=== PATIENT | female | born 1985 | race Caucasian/White ===

== ENCOUNTER 2019-04-06 22:28 | Emergency (ER) | payer SELFPAY ==
[~2019-04-06] VITALS: Ht 172.7 cm; Wt 124.3 kg
[~2019-04-06 22:28] MED LIST: HYDR1TAB3 PO; LANS30CA PO; MULT-608 PO; PRM25T PO
[2019-04-06 22:53] LABS: BILIRUBIN,URINE NEGATIVE (NEGATIVE); CLARITY,URINE CLEAR; COLOR,URINE YELLOW; GLUCOSE, URINE (UA) NEGATIVE (NEGATIVE); KETONES,URINE 3+ (NEGATIVE); LEUKOCYTE ESTERASE ,URINE 2+ (NEGATIVE); NITRITE,URINE NEGATIVE (NEGATIVE); PH,URINE 5 (5-9); PROTEIN,URINE 2+ (NEGATIVE); UROBILINOGEN,URINE NORMAL (NORMAL)
--- NOTE | 2019-04-06 23:00 | ED Cough/URI ---
General Chief Complaint: Respiratory Problems Stated Complaint: COUGHING UP BLOOD Nursing Triage Note: Pt amb to room #6 w/o difficulty. a&ox4. c/o cough, congestion, and blood tinged sputum. Reports to have been seen @ [facility] on 03/29/19 where she was given IM rocephin injection. Reports symptoms persisted and began to cough up blood tinged sputum this evening. Denies recenet fever within past 48hrs. Reports "burning chest" and headache d/t congestion. Sepsis Screen: No Definite Risk Source: patient History of Present Illness Date Seen by Provider: Apr 06, 2019 Time Seen by Provider: 22:39 Initial Comments PT ARRIVES VIA POV STATES SHE HAS HAD COUGH AND CONGESTION X 1 WEEK HAD SUBJECTIVE FEVER AND CHILLS LAST WEEK BUT NONE SINCE NO CHEST PAIN OR SHORTNESS OF BREATH, BUT CHEST "PERKINS" OCCASIONALLY WITH COUGHING TONIGHT AT WORK, SHE COUGHED UP BLOOD TINGED SPUTUM X 1, SO CAME HERE C/O HEADACHE DUE TO NASAL CONGESTION/SINUS PRESSURE PT WAS SEEN BY DR. ESPINOZA LAST WEEK FOR ENDOMETRIAL BIOPSY, AND MENTIONED THESE RESPIRATORY SYMPTOMS AT THE TIME. WAS GIVEN A SHOT OF ROCEPHIN, BUT NO RX'S NO HX OF BRONCHITIS/PNEUMONIA OR RESPIRATORY PROBLEMS, OTHER THAT FREQUENT SINUS PROBLEMS PT SMOKES 2 PPD PCP: DR. ESPINOZA AT [facility] Allergies and Home Medications Allergies Coded Allergies: No Known Drug Allergies (Unverified , 01/21/15) Home Medications Azithromycin 500 Mg Tablet, 500 MG PO DAILY FOR INFECTION Prescribed by: HOLLEY VILLASENOR on 04/06/19 7951 Cefdinir 300 Mg Capsule, 300 MG PO BID Prescribed by: HOLLEY VILLASENOR on 04/06/19 4488 Patient Home Medication List Home Medication List Reviewed: Yes Review of Systems Review of Systems Constitutional: see HPI EENTM: see HPI, nose congestion Respiratory: see HPI, cough, hemoptysis, phlegm; No short of breath, No wheezing Cardiovascular: see HPI Gastrointestinal: no symptoms reported Genitourinary: see HPI (CHRONIC IRREGULAR PERIODS--HAD VAGINAL ULTRASOUND A FEW WEEKS AGO, AND ENDOMETRIAL BIOPSY LAST WEEK) LMP: March 17, 2019 (NO CONTROL) Musculoskeletal: no symptoms reported Skin: no symptoms reported Psychiatric/Neurological: No Symptoms Reported Hematologic/Lymphatic: No Symptoms Reported Immunological/Allergic: no symptoms reported Past Lbtmbco-Yttmxg-Sabyll Hx Patient Social History Alcohol Use: Denies Use Recreational Drug Use: No Smoking Status: Current Everyday Smoker (2 PPD) Type Used: Cigarettes (2 PPD) 2nd Hand Smoke Exposure: Yes Recent Foreign Travel: No Contact w/Someone Who Travel: No Recent Infectious Disease Expo: No Recent Hopitalizations: Yes (hositalized for allergic reaction) Immunizations Up To Date Date of Influenza Vaccine: Sep 24, 2014 Past Medical History Surgeries: Yes (BMT'S; RIGHT CARPAL TUNNEL; RIGHT GANGLION CYST X 2; LEFT TEMPORAL ARTERY BIOPSY; ENDOMETRIAL BIOPSY 03/2019) Gallbladder, Orthopedic, Renal, Tonsillectomy Respiratory: No Cardiac: No Palpitations Neurological: Yes Headaches /Migraines : No Female Reproductive Disorders: Menstrual Problems (IRREGULAR PERIODS) Sexually Transmitted Disease: No Genitourinary: Yes Kidney Stones, UTI-Chronic Gastrointestinal: Yes Irritable Bowel Musculoskeletal: Yes (GANGLION CYSTS, CARPAL TUNNEL, VITAMIN D DEFICIENCY) Endocrine: Yes (VITAMIN D DEFICIENCY; OBESITY) Diabetes, Non-Insulin dep Cancer: No Psychosocial: Yes Anxiety Integumentary: No Blood Disorders: No Physical Exam Vital Signs - First Documented 04/06/19 22:30 Temp 96.9 Pulse 82 Resp 19 B/P (MAP) 118/63 (81) Pulse Ox 95 O2 Delivery Room Air Capillary Refill : Less Than 3 Seconds Height: 5'8.00" Weight: 274lbs. oz. 124.386827gq; BMI Method:Stated General Appearance: no apparent distress, obese HEENT: PERRL/EOMI, other (NASAL CONGESTION; FRONTAL SINUS TENDERNESS) Neck: non-tender, full range of motion, supple, normal inspection Respiratory: normal breath sounds, no respiratory distress, no accessory muscle use Cardiovascular: regular rate, rhythm, no murmur Gastrointestinal: non tender, soft Extremities: normal inspection, no pedal edema Neurologic/Psychiatric: records officer II-XII nml as tested, no motor/sensory deficits, alert, normal mood/affect, oriented x 3 Skin: normal color, warm/dry Focused Exam Lactate Level 04/06/19 23:20: Lactic Acid Level 0.64 Lactic Acid Level Laboratory Tests Test 04/06/19 23:20 Lactic Acid Level 0.64 MMOL/L (0.50-2.00) Progress/Results/Core Measures Suspected Sepsis Recent Fever Within 48 Hours: No Infection Criteria Present: Suspected New Infection New/Unexplained Altered Menta: No Sepsis Screen: No Definite Risk SIRS Temperature:96.9 Pulse: 82 Respiratory Rate: 19 Laboratory Tests 04/06/19 23:20: White Blood Count 14.3H Blood Pressure 118 /63 Mean: 81 04/06/19 23:20: Lactic Acid Level 0.64 Laboratory Tests 04/06/19 23:20: Creatinine 0.67, INR Comment 1.0, Platelet Count 490H, Total Bilirubin 0.2 Results/Orders Lab Results Laboratory Tests Test 04/06/19 22:45 04/06/19 23:20 Range/Units Urine Color YELLOW Urine Clarity CLEAR Urine pH 5 5-9 Urine Specific Ponce 1.025 H 1.016-1.022 Urine Protein 2+ H NEGATIVE Urine Glucose (UA) NEGATIVE NEGATIVE Urine Ketones 3+ H NEGATIVE Urine Nitrite NEGATIVE NEGATIVE Urine Bilirubin NEGATIVE NEGATIVE Urine Urobilinogen NORMAL NORMAL MG/DL Urine Leukocyte Esterase 2+ H NEGATIVE Urine RBC (Auto) 3+ H NEGATIVE Urine RBC 10-25 H /HPF Urine WBC 10-25 H /HPF Urine Squamous Epithelial Cells 2-5 /HPF Urine Crystals NONE /LPF Urine Bacteria FEW H /HPF Urine Casts NONE /LPF Urine Mucus LARGE H /LPF Urine Culture Indicated YES White Blood Count 14.3 H 4.3-11.0 10^3/uL Red Blood Count 5.28 4.35-5.85 10^6/uL Hemoglobin 12.4 11.5-16.0 G/DL Hematocrit 40 35-52 % Mean Corpuscular Volume 76 L 80-99 FL Mean Corpuscular Hemoglobin 24 L 25-34 PG Mean Corpuscular Hemoglobin Concent 31 L 32-36 G/DL Red Cell Distribution Width 15.9 H 10.0-14.5 % Platelet Count 490 H 130-400 10^3/uL Mean Platelet Volume 9.7 7.4-10.4 FL Neutrophils (%) (Auto) 66 42-75 % Lymphocytes (%) (Auto) 25 12-44 % Monocytes (%) (Auto) 7 0-12 % Eosinophils (%) (Auto) 1 0-10 % Basophils (%) (Auto) 0 0-10 % Neutrophils # (Auto) 9.5 H 1.8-7.8 X 10^3 Lymphocytes # (Auto) 3.6 1.0-4.0 X 10^3 Monocytes # (Auto) 0.9 0.0-1.0 X 10^3 Eosinophils # (Auto) 0.2 0.0-0.3 10^3/uL Basophils # (Auto) 0.1 0.0-0.1 10^3/uL Prothrombin Time 13.9 12.2-14.7 SEC INR Comment 1.0 0.8-1.4 Activated Partial Thromboplast Time 35 24-35 SEC Sodium Level 137 135-145 MMOL/L Potassium Level 3.7 3.6-5.0 MMOL/L Chloride Level 105 98-107 MMOL/L Carbon Dioxide Level 21 21-32 MMOL/L Anion Gap 11 5-14 MMOL/L Blood Urea Nitrogen 10 7-18 MG/DL Creatinine 0.67 0.60-1.30 MG/DL Estimat Glomerular Filtration Rate > 60 BUN/Creatinine Ratio 15 Glucose Level 102 70-105 MG/DL Lactic Acid Level 0.64 0.50-2.00 MMOL/L Calcium Level 9.6 8.5-10.1 MG/DL Corrected Calcium 9.4 8.5-10.1 MG/DL Magnesium Level 2.1 1.8-2.4 MG/DL Total Bilirubin 0.2 0.1-1.0 MG/DL Aspartate Amino Transf (AST/SGOT) 17 5-34 U/L Alanine Aminotransferase (ALT/SGPT) 18 0-55 U/L Alkaline Phosphatase 107 40-136 U/L B-Type Natriuretic Peptide < 10.0 <100.0 PG/ML Total Protein 7.9 6.4-8.2 GM/DL Albumin 4.3 3.2-4.5 GM/DL My Orders Orders - HOLLEY VILLASENOR DO Ed Iv/Invasive Line Start (04/06/19 22:39) Urine Bedside (04/06/19 22:39) Monitor-Rhythm Ecg Trace Only (04/06/19 22:39) Chest Pa/Lat (2 View) (04/06/19 22:39) BNP (04/06/19 22:39) Cbc With Automated Diff (04/06/19 22:39) Comprehensive Metabolic Panel (04/06/19 22:39) Lactic Acid Analyzer (04/06/19 22:39) Magnesium (04/06/19 22:39) Protime With Inr (04/06/19 22:39) Partial Thromboplastin Time (04/06/19 22:39) Ua Culture If Indicated (04/06/19 22:39) Blood Culture (04/06/19 22:39) Urine Culture (04/06/19 22:45) Ceftriaxone For Iv Use (Rocephin For I (04/06/19 23:30) Ed Iv/Invasive Line Start (04/06/19 23:22) Ns Iv 1000 Ml (Sodium Chloride 0.9%) (04/06/19 23:22) Azithromycin Tablet (Zithromax Tablet) (04/07/19 00:00) Medications Given in ED Current Medications Medications Dose Ordered Sig/Juliette Route Start Time Stop Time Status Last Admin Dose Admin Ceftriaxone Sodium 1000 mg/ Sterile Water 10 ml @ 200 mls/hr ONCE ONCE IV 04/06/19 23:30 04/06/19 23:32 DC 04/06/19 23:43 200 MLS/HR Sodium Chloride 1,000 ml @ 0 mls/hr Q0M ONCE IV 04/06/19 23:22 04/06/19 23:23 DC 04/06/19 23:44 0 MLS/HR Vital Signs/I&O 04/06/19 22:30 Temp 96.9 Pulse 82 Resp 19 B/P (MAP) 118/63 (81) Pulse Ox 95 O2 Delivery Room Air Capillary Refill : Less Than 3 Seconds Blood Pressure Mean: 81 Progress Note : Progress Note NO COUGH OR ANY OTHER SYMPTOMS DURING ER STAY Diagnostic Imaging Comments CXR--RLL AND RML INFILTRATES, PENDING RADIOLOGIST REVIEW Reviewed: Reviewed by Me Departure Impression Primary Impression: RLL pneumonia Additional Impressions: RML pneumonia UTI (urinary tract infection) Disposition: 01 HOME, SELF-CARE Condition: Stable Departure-Patient Inst. Referrals: BIRD ESPINOZA MD (PCP/Family) Primary Care Physician Patient Instructions: Pneumonia, Adult (DC), Urinary Tract Infection, Adult (DC) Add. Discharge Instructions: LOTS OF CLEAR LIQUIDS MUCINEX DM NEEDED FOR COUGH TYLENOL AND MOTRIN NEEDED FOR PAIN OR FEVER FOLLOW UP WITH [facility] IN 3-4 DAYS FOR FURTHER CARE RETURN TO ER IF WORSE All discharge instructions reviewed with patient and/or family. Voiced under standing. Scripts Azithromycin (Zithromax) 500 Mg Tablet 500 MG PO DAILY, #5 TAB FOR INFECTION Prov: HOLLEY VILLASENOR DO 04/06/19 Cefdinir (Cefdinir) 300 Mg Capsule 300 MG PO BID for FOR INFECTION, #20 CAP Prov: HOLLEY VILLASENOR DO 04/06/19 Work/School Note: Work Release Form Date Seen in the Emergency Department: Apr 07, 2019 Restrictions: Need Release from Doctor HOLLEY VILLASENOR DO Apr 06, 2019 23:00
[2019-04-06 23:15] LABS: BACTERIA,URINE FEW /HPF
[2019-04-06] MEDS ORDERED: NS IV 1000 ML 1,000 ML IV ONE (23:22)
[2019-04-06] MEDS ORDERED: cefTRIAXone FOR IV USE 1,000 MG in WATER (STERILE) FOR INJECTION 10 ML IV ONE (23:30)
[2019-04-06 23:31] LABS: BASOPHILS # (AUTO) 0.1 10^3/uL (0.0-0.1); BASOPHILS % (AUTO) 0 % (0-10); EOSINOPHILS # (AUTO) 0.2 10^3/uL (0.0-0.3); EOSINOPHILS % (AUTO) 1 % (0-10); HEMATOCRIT 40 % (35-52); HEMOGLOBIN 12.4 G/DL (11.5-16.0); LYMPHOCYTES # (AUTO) 3.6 X 10^3 (1.0-4.0); LYMPHOCYTES % (AUTO) 25 % (12-44); MEAN CORPUSCULAR HEMOGLOBIN 24 PG (25-34); MEAN CORPUSCULAR HGB CONC 31 G/DL (32-36); MEAN CORPUSCULAR VOLUME 76 FL (80-99); MEAN PLATELET VOLUME 9.7 FL (7.4-10.4); MONOCYTES # (AUTO) 0.9 X 10^3 (0.0-1.0); MONOCYTES % (AUTO) 7 % (0-12); NEUTROPHILS # (AUTO) 9.5 X 10^3 (1.8-7.8); NEUTROPHILS % (AUTO) 66 % (42-75); PLATELET COUNT 490 10^3/uL (130-400); RED CELL DISTRIBUTION WIDTH 15.9 % (10.0-14.5); WHITE BLOOD COUNT 14.3 10^3/uL (4.3-11.0)
[2019-04-06 23:45] LABS: PROTHROMBIN TIME PATIENT 13.9 SEC (12.2-14.7)
[2019-04-06 23:50] LABS: ALANINE AMINOTRANSFERASE 18 U/L (0-55); ALBUMIN 4.3 GM/DL (3.2-4.5); ALKALINE PHOSPHATASE 107 U/L (40-136); BILIRUBIN,TOTAL 0.2 MG/DL (0.1-1.0); BUN/CREATININE RATIO 15; CALCIUM 9.6 MG/DL (8.5-10.1); CARBON DIOXIDE 21 MMOL/L (21-32); CHLORIDE 105 MMOL/L (98-107); CREATININE SERUM 0.67 MG/DL (0.60-1.30); GFR ESTIMATED > 60; GLUCOSE 102 MG/DL (70-105); MAGNESIUM 2.1 MG/DL (1.8-2.4); POTASSIUM 3.7 MMOL/L (3.6-5.0); SODIUM 137 MMOL/L (135-145); TOTAL PROTEIN 7.9 GM/DL (6.4-8.2)
[2019-04-06] MEDS ORDERED: CEFD300C3 PO (23:59)
[2019-04-06] MEDS ORDERED: AZIT500T PO (23:59)
[2019-04-07] MEDS ORDERED: AZITHROMYCIN 250 MG TAB (ZITHROMAX) PO ONE
[2019-04-07 00:42] VITALS: BP 111/64
--- NOTE | 2019-04-07 07:16 | Diagnostic Imaging Report ---
Clinical indication: Patient coughed up blood tonight. Patient has been sick for the past week with cough. Exam: Chest x-ray PA and lateral views. Comparisons: Chest x-ray dated 01/21/2015. Findings: Lungs/pleura: There is interval development of mild airspace opacity in the right lung base and increased density in the middle lobe region. There is also mild airspace opacity in the left lung base. Otherwise, lungs are clear. There is no pneumothorax. There is no pleural effusion. Mediastinum: Unremarkable. Pulmonary vasculature: Unremarkable. Heart: Unremarkable. Bones/extrathoracic soft tissue: Unremarkable. Impression: There is interval development of increased opacities in both lung bases in the mid low regions. These findings may related to atelectasis versus infiltrate. Dictated by: Dictated on workstation # [id number]
== END 2019-04-07 00:42 | disposition home or self-care (01) ==
LOC: EDUNIT# 22:28 → ER 22:29
DX: J18.1 Lobar pneumonia, unspecified organism (principal); N39.0 Urinary tract infection, site not specified; G43.909 Migraine, unspecified, not intractable, without status migrainosus; K58.9 Irritable bowel syndrome, unspecified; E11.9 Type 2 diabetes mellitus without complications; E66.9 Obesity, unspecified; F41.9 Anxiety disorder, unspecified; F17.210 Nicotine dependence, cigarettes, uncomplicated; Z87.442 Personal history of urinary calculi; Z87.440 Personal history of urinary (tract) infections; Z90.89 Acquired absence of other organs; Z98.890 Other specified postprocedural states; Z68.41 Body mass index [BMI] 40.0-44.9, adult
CPT/HCPCS: 36415; 71046; 80053; 81000; 83605; 83735; 83880; 84703; 85025; 85610; 85730; 87040; 87077; 87088; 93041; 96374

== ENCOUNTER 2019-04-19 17:21 | Emergency (ER) | payer SELFPAY ==
[~2019-04-19] VITALS: Ht 170.2 cm; Wt 117.9 kg
[~2019-04-19 17:21] MED LIST changes: +AZIT500T PO; +CEFD300C3 PO
[2019-04-19] MEDS ORDERED: NF-METHYLP PO (17:40)
--- NOTE | 2019-04-19 17:40 | ED Integumentary General ---
General Chief Complaint: Skin/Wound Problems Stated Complaint: RASH ON L FOREARM Source: patient Exam Limitations: no limitations History of Present Illness Date Seen by Provider: Apr 19, 2019 Time Seen by Provider: 17:37 Initial Comments To ER with sudden onset of pruritic bumps on the dorsal aspect of the forearms bilaterally about 15 minutes ago. No other symptoms. She just finished a ten-day course of Cefdinir and a five-day course of azithromycin yesterday which was for pneumonia. Timing/Duration: just prior to arrival Severity: mild Associated Symptoms: denies symptoms Allergies and Home Medications Allergies Coded Allergies: No Known Drug Allergies (Unverified , 01/21/15) Home Medications Azithromycin 500 Mg Tablet, 500 MG PO DAILY FOR INFECTION Prescribed by: HOLLEY VILLASENOR on 04/06/192358 Cefdinir 300 Mg Capsule, 300 MG PO BID Prescribed by: HOLLEY VILLASENOR on 04/06/192358 Patient Home Medication List Home Medication List Reviewed: Yes Review of Systems Review of Systems Constitutional: see HPI EENTM: see HPI Respiratory: no symptoms reported Cardiovascular: no symptoms reported Genitourinary: no symptoms reported Musculoskeletal: no symptoms reported Skin: see HPI Psychiatric/Neurological: No Symptoms Reported Endocrine: No Symptoms Reported Past Cvszpok-Kgzxeg-Ebuetf Hx Patient Social History Type Used: Cigarettes 2nd Hand Smoke Exposure: Yes Recent Foreign Travel: No Contact w/Someone Who Travel: No Recent Hopitalizations: Yes (hositalized for allergic reaction) Immunizations Up To Date Date of Influenza Vaccine: Sep 24, 2014 Past Medical History Surgeries: Yes Gallbladder, Orthopedic, Renal, Tonsillectomy Respiratory: No Cardiac: No Palpitations Neurological: Yes Headaches /Migraines Female Reproductive Disorders: Menstrual Problems Sexually Transmitted Disease: No Genitourinary: Yes Kidney Stones, UTI-Chronic Gastrointestinal: Yes Irritable Bowel Musculoskeletal: Yes (GANGLION CYSTS, CARPAL TUNNEL, VITAMIN D DEFICIENCY) Endocrine: Yes (VITAMIN D DEFICIENCY; OBESITY) Diabetes, Non-Insulin dep Cancer: No Psychosocial: Yes Anxiety Integumentary: No Blood Disorders: No Physical Exam Vital Signs Capillary Refill : General Appearance: WD/WN, no apparent distress Extremities: normal range of motion, non-tender Neurologic/Psychiatric: alert, normal mood/affect, oriented x 3 Skin: normal color, warm/dry, rash (small 4 x 5 cm area of erythematous pruritic papules on the mid dorsal forearm on the right and the proximal dorsal forearm on the left. These are not hives) Departure Impression Primary Impression: Rash and nonspecific skin eruption Disposition: 01 HOME, SELF-CARE Condition: Stable Departure-Patient Inst. Decision time for Depature: 17:39 Referrals: BIRD ESPINOZA MD (PCP/Family) Primary Care Physician Patient Instructions: Skin Rash Add. Discharge Instructions: It's very hard to tell what this rash is from. The fact that it that she would suggest an allergic component, it could be a delayed reaction to the antibiotics I do not think that's what this is. Go home and take a Benadryl, if the rash worsens or is excessively bothersome tomorrow then start the steroids. All discharge instructions reviewed with patient and/or family. Voiced understanding. Scripts Methylprednisolone (Medrol) 4 Mg Tab 4 MG PO UD for 6 Days, #21 TAB as directed per dose pack Prov: AMADA BARR APRN 04/19/19 AMADA BARR APRN Apr 19, 2019 17:40
[2019-04-19 17:43] VITALS: BP 141/91
--- NOTE | 2019-04-19 17:43 | NUR ---
PT DISCHARGED HOME VIA AMBULATORY WITHOUT DIFFICULTY
== END 2019-04-19 17:43 | disposition home or self-care (01) ==
LOC: EDUNIT# 17:21 → ER 17:23
DX: R21 Rash and other nonspecific skin eruption (principal); G43.909 Migraine, unspecified, not intractable, without status migrainosus; E11.9 Type 2 diabetes mellitus without complications; F41.9 Anxiety disorder, unspecified; E66.9 Obesity, unspecified; Z87.440 Personal history of urinary (tract) infections; Z87.442 Personal history of urinary calculi; Z77.22 Contact with and (suspected) exposure to environmental tobacco smoke (acute) (chronic); Z90.89 Acquired absence of other organs
CPT/HCPCS: 99282

== ENCOUNTER 2020-07-28 10:11 | Inpatient (IN) | payer MEDICAID ==
[~2020-07-28] VITALS: Ht 167 cm; Wt 117.0 kg
[~2020-07-28 10:11] MED LIST changes: -DOCU-143 PO; -IBUP-1780 PO
[2020-07-28] MEDS ORDERED: OXYTOCIN PRE-MIX DRIP 500 ML IV ONE (10:56)
[2020-07-28] MEDS ORDERED: D5 LR IV SOLUTION 1,000 ML IV ONE (11:02)
[2020-07-28 12:00] VITALS: BP 123/59
[2020-07-28] MEDS ORDERED: D5 LR IV SOLUTION 1,000 ML IV SCH (12:03)
--- NOTE | 2020-07-28 12:03 | History & Physical ---
History and Physical Date Seen by Provider: Jul 28, 2020 Time Seen by Provider: 10:55 this patient is a 35-year-old 1 female who presented to the emergency department at about 1015 today complaining of cramps and contractions and pressure. She was directed to the labor and delivery unit in route she stopped that a restaurant feeling that she was having a bowel movement. She delivered a 24 week baby in the toilet. The emergency department was apprised of the situation and recover the baby. Dr. Vu ED physician was on hand apparently for the baby. When additional personnel were available this patient was moved from the restroom to the emergency department room 6. I was apprised of this patient being present in the hospital by the nurse telephone order supervisor at about 1045 when I came in to around. The nurse telephone order supervisor checked with the emergency department as to whether I was needed and they did request that I attend the patient at that time On my arrival at the emergency department at about 1050 I received a sketchy account of the sequence of events. I evaluated this patient in room 6. This patient is a 35-year-old 1 white female whose is complicated by gestational diabetes and obesity. [facility] the [facility] to her [facility] risk status. She was visiting in [place] when she began having cramps pain and pressure. She presented as above. On my initial evaluation the patient was in no acute distress. I was apprised that the umbilical cord was protruding from the vagina and there was a small amount of blood. Allergies are none Medications are Glyburide, vitamins and low-dose aspirin Past medical history includes diabetes mellitus and obesity Past surgical history includes cholecystectomy, multiple tunnels syndrome surgery, ear tubes Social history includes tobacco abuse up to the time the patient had a positive test, she denies alcohol use denies drug abuse denies history of STDs she is engaged Family history is noncontributory Generally the patient is a well-developed overweight white female she is in minimal distress HEENT exam is normal Abdomen is obese and nontender Extremity show no clubbing cyanosis. There is minimal pretibial pitting edema. There is no Homans sign Pelvic exam shows a umbilical cord protruding from the vagina. Cord blood gas arterial was obtained Bimanual exam revealed the cord connected to the placenta inside the uterus with manual manipulation and the patient pushing the placenta delivered Parnell. The placenta was atretic and fibrotic and had attached blood clot consistent with some degree of abruption Placenta was sent to pathology for permanent section Minimal bleeding was encountered after delivery of the placenta. Assessment and plan spontaneous precipitous delivery at 24 weeks in the bathroom in route to labor and delivery. The baby is being managed by Dr. Vu and the facility technician road commissioner. Placenta is now delivered patient is stable and will be admitted and maintained on IV Pitocin for period of observation and convalescent care 24 week spontaneous vaginal delivery Allergies and Home Medications Allergies Coded Allergies: No Known Drug Allergies (Unverified , 01/21/15) Home Medications Azithromycin 500 Mg Tablet, 500 MG PO DAILY FOR INFECTION Prescribed by: HOLLEY VILLASENOR on 04/06/19 317 Cefdinir 300 Mg Capsule, 300 MG PO BID Prescribed by: HOLLEY VILLASENOR on 04/06/19 661 Methylprednisolone 4 Mg Tab, 4 MG PO UD as directed per dose pack Prescribed by: AMADA BARR on 04/19/19 7622 Patient Home Medication List Home Medication List Reviewed: Yes BREA SALDANA MD Jul 28, 2020 12:03
[2020-07-28] MEDS ORDERED: OXYTOCIN PRE-MIX DRIP 500 ML IV SCH (12:06)
[2020-07-28] MEDS ORDERED: DOCU-143 PO (12:08)
[2020-07-28] MEDS ORDERED: IBUP-1780 PO (12:08)
--- NOTE | 2020-07-28 12:09 | Discharge Inst-Surgical ---
Discharge Inst-Surgical Depart Medication/Instructions New, Converted or Re-Newed RX: RX on Chart Consults/Follow Up Patient Instructions: as directed Orders & Referrals Follow Up Appt: Call to make follow up appt. for patient in 6 weeks for exam with your primary care provider. Activity Per routine post vaginal delivery instructions. Please call in RX to patient pharmacy. Diet as tolerated Patient may shower or tub bathe as desired. Activity Activity as Tolerated: No Diet Discharge Diet: No Restrictions BREA SALDANA MD Jul 28, 2020 12:09
[2020-07-28] MEDS ORDERED: KETOROLAC 30 MG/ML VIAL IVP SCH (12:15)
[2020-07-28] MEDS ORDERED: ONDANSETRON 4 MG/2 ML (SDV) Z0FRAN IVP PRN (12:15)
[2020-07-28] MEDS ORDERED: BENZOCAINE/MENTHOL (DERMOPLAST) 60 ML CAN TP PRN (12:15)
[2020-07-28] MEDS ORDERED: oxyCODONE/APAP 5/325MG (PERCOCET 5) TABLET PO PRN (12:15)
[2020-07-28] MEDS ORDERED: TETANUS,DIPTH,PERTUSS P/F (BOOSTRIX) 0.5 ML VIAL IM ONE (12:15)
[2020-07-28] MEDS ORDERED: MEASLES,MUMPS,RUBELLA 1 EA INJ SC ONE (12:15)
[2020-07-28 12:16] LABS: BASOPHILS % (AUTO) 0 % (0-10); EOSINOPHILS % (AUTO) 0 % (0-10); HEMATOCRIT 39 % (35-52); HEMOGLOBIN 12.4 g/dL (11.5-16.0); LYMPHOCYTES # (AUTO) 0.4 10^3/uL (1.0-4.0); LYMPHOCYTES % (AUTO) 4 % (12-44); MEAN CORPUSCULAR HEMOGLOBIN 26 pg (25-34); MEAN CORPUSCULAR HGB CONC 32 g/dL (32-36); MEAN CORPUSCULAR VOLUME 82 fL (80-99); MONOCYTES # (AUTO) 0.2 10^3/uL (0.0-1.0); MONOCYTES % (AUTO) 2 % (0-12); NEUTROPHILS # (AUTO) 8.9 10^3/uL (1.8-7.8); NEUTROPHILS % (AUTO) 93 % (42-75); PLATELET COUNT 297 10^3/uL (130-400); WHITE BLOOD COUNT 9.6 10^3/uL (4.3-11.0)
[2020-07-28 12:18] LABS: ALBUMIN 3.5 GM/DL (3.2-4.5); CHLORIDE 101 MMOL/L (98-107); POTASSIUM 3.3 MMOL/L (3.6-5.0); SODIUM 131 MMOL/L (135-145)
[2020-07-28 12:19] LABS: CALCIUM 8.8 MG/DL (8.5-10.1)
[2020-07-28 12:20] LABS: GLUCOSE 123 MG/DL (70-105)
[2020-07-28 12:21] LABS: TOTAL PROTEIN 6.9 GM/DL (6.4-8.2)
[2020-07-28 12:22] LABS: BILIRUBIN,TOTAL 0.5 MG/DL (0.1-1.0); CARBON DIOXIDE 16 MMOL/L (21-32)
[2020-07-28 12:24] LABS: ALKALINE PHOSPHATASE 156 U/L (40-136); CREATININE SERUM 0.55 MG/DL (0.60-1.30); GFR ESTIMATED > 60
[2020-07-28 12:25] LABS: BUN/CREATININE RATIO 9
[2020-07-28 12:27] LABS: ALANINE AMINOTRANSFERASE 21 U/L (0-55)
[2020-07-28] MEDS ORDERED: FLU QUADRIvalent (3YOA+) 60 mcg/0.5 ml 2020-21 (AFLURIA) IM ONE (13:00)
[2020-07-28 14:00] VITALS: BP 116/57
[2020-07-28 17:58] LABS: AMPHETAMINE SCREEN, URINE NEGATIVE (NEGATIVE); BARBITURATE SCREEN URINE NEGATIVE (NEGATIVE); BENZODIAZEPINES SCREEN URINE NEGATIVE (NEGATIVE); CANNABINOID SCREEN, URINE NEGATIVE (NEGATIVE); COCAINE SCREEN URINE NEGATIVE (NEGATIVE); METHADONE STAT NEGATIVE (NEGATIVE); METHAMPHETAMINE SCREEN URINE S NEGATIVE (NEGATIVE); OPIATE SCREEN URINE NEGATIVE (NEGATIVE); OXYCODONE STAT NEGATIVE (NEGATIVE); PROPOXYPHENE STAT NEGATIVE (NEGATIVE); TRICYCLIC ANTIDEPRESSANTS SCRE NEGATIVE (NEGATIVE)
[2020-07-28] MEDS ORDERED: IBUPROFEN 800 MG (MOTRIN) TAB PO SCH (18:00)
[2020-07-28 18:15] VITALS: BP 114/58
[2020-07-28 20:10] VITALS: BP 114/58
[2020-07-28] MEDS ORDERED: DOCUSATE SODIUM 100 MG (COLACE) CAP PO SCH (21:00)
== END 2020-07-28 20:10 | disposition home or self-care (01) | DRG 776 ==
LOC: EDUNIT# 10:11 → ER 10:58 → LDRP 11:24
PROVIDERS: ADMIT Obstetrics & Gynecology; ATTEND Obstetrics & Gynecology
PROC: 10E0XZZ Delivery of Products of Conception, External Approach (ICD-10-PCS; principal; 2020-07-28)
DX: Z39.0 Encounter for care and examination of mother immediately after delivery (principal)
CPT/HCPCS: 36415; 59409; 80053; 80306; 85025; 86644; 86645; 86695; 86696; 86762; 86777; 86778; 86850; 86900; 86901

== ENCOUNTER → 2020-07-28 | Outpatient (CLI) | payer SELFPAY ==
[~2020-07-28] MED LIST changes: +DOCU-143 PO; +IBUP-1780 PO; +NF-METHYLP PO
--- NOTE | 2020-07-28 11:30 | NUR ---
Patient to stay in ED due to delivery of 24 week . This clinic account is no longer needed. Once patient is stable, patient will be admitted as an inpatient to room 308.
== END ==
LOC: WSo 10:11 → LDRP 10:11
PROVIDERS: ATTEND Family Medicine
DX: Z53.9 Procedure and treatment not carried out, unspecified reason (principal)